=== PATIENT | female | born 1960 | race Caucasian/White ===

== ENCOUNTER → 2019-04-04 | Day surgery (SDC) | payer MEDICARE ==
[~2019-04-04] MED LIST: ANASTROZOLE1 MG PO; CALCIUM PO; CARVEDILOL12.5 MG PO; CHONDROITIN SU100 GM PO; FENTANYL CITRATE/PF 100MCG/2 ML INJ ONE; FLUOXETINE HCL20 MG PO; FUROSEMIDE40 MG PO; GABAPENTIN300 MG PO; GLUCOSAMINE1000 MG PO; LIDOCAINE HCL 2% LOCAL INJ 5 ML SDV VIAL INJ ONE; LISINOPRIL10 MG PO; MIDAZOLAM HCL 2 MG/2 ML VIAL ONE; MULTI-VITAMIN1 EACH PO; NORCO 7.5-3251 EACH PO; PANTOPRAZOLE SO40 MG PO; POTASSIUM CHLO10 ME1 PO; PROPOFOL IV EMULSION 10 MG/ML 50 ML VIAL ONE; SIMVASTATIN40 MG PO; TIZANIDINE HCL4 MG PO; ZOLPIDEM TARTRA10 MG PO
--- OUTSIDE RECORDS SUMMARY | 2019-04-04 05:55 | XMS REPORT | Summary of Care ---
Author Author [facility] Organization [facility] Address Unknown Phone Unavailable Encounter SUMAN Myles(ANAND) [id number] Date(s): 02/11/18 - 02/11/18 [facility] [address] [place] [address] [phone] Discharge Disposition: Home or Self Care Attending Physician: Marino Brian MD Vital Signs No data available for this section Problem List Condition Effective Dates Status Health Status Informant AICD (automatic Active cardioverter/defibri llator) present(Confirmed) CHF (congestive Active heart failure)(Confirmed) Hypercholesterolemia Active (Confirmed) Hypertension(Confirm Active ed) Insomnia(Confirmed) Active Breast Resolved cancer(Confirmed) Allergies, Adverse Reactions, Alerts Substance Reaction Severity Status NKDA Active Medications No data available for this section Results No data available for this section Immunizations No data available for this section Procedures Procedure Date Related Diagnosis Body Site Status Breast lumpectomy Completed Breast reconstruction Completed Cholecystectomy Completed Hysterectomy Completed Implantation of automatic Completed cardioverter/defibrillator, total system (AICD) Social History Social History Type Response Alcohol Current, Frequency: 1-2 times per month. Smoking Status Never smoker; Concerns about tobacco use in household: No; Exposure to Tobacco Smoke None; Cigarette Smoking Last 365 Days No; Reg Smoking Cessation Counseling No entered on: 07/26/17 Assessment and Plan No data available for this section
--- OUTSIDE RECORDS SUMMARY | 2019-04-04 05:55 | XMS REPORT | Continuity of Care Document ---
Author Author [facility] Interface Address Unknown Phone Unavailable Problems Problem Status Onset Date Classification Date Reported Comments Source AQUA LBP, RT LEG PAIN Active 11/25/2018 [facility] Low back pain 09/26/2018 02/07/2019 [facility] Edema, unspecified 05/16/2018 11/28/2018 [facility] LT ANKLE Active 04/02/2018 [facility] [place] Discharge Diagnosis: Abrasion of chest wall 07/26/2017 07/30/2017 [facility] Discharge Diagnosis: Contusion of left leg 07/26/2017 07/30/2017 [facility] Discharge Diagnosis: Left ankle sprain 07/26/2017 07/30/2017 [facility] Discharge Diagnosis: Chest wall contusion 07/26/2017 07/30/2017 [facility] FALL Active 07/26/2017 [facility] 789.00 - ABDMNAL PAIN UN Active 09/24/2012 [facility] [place] Pain in left ankle and joints of left foot 11/28/2018 [facility] Unspecified abnormalities of gait and mobility 11/28/2018 [facility] Sprain of unspecified ligament of right ankle, sequela 11/28/2018 [facility] Spinal stenosis, lumbar region without neurogenic claudication 02/07/2019 [facility] 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 [facility] AICD present(<span ID="[id number]">Confirmed</span>) Active Problem 02/07/2019 [facility], [facility] [place] REN[facility] CHF (<span ID="[id number]">Confirmed</span>) Active Problem 02/07/2019 [facility], [facility] [place] Hypercholesterolemia Active Problem 02/07/2019 [facility], [facility] [place] [place] [place] Hypertension Active Problem 02/07/2019 [facility] [place] [place] [place] Insomnia Active Problem 02/07/2019 [facility] [place] [place] [place] Breast cancer Resolved Problem 02/07/2019 [facility] [place] [place], [facility] [place] AICD present(<span ID="[id number]">Confirmed</span>) Active Problem 01/08/2019 [facility] [place], [place],[facility] CHF (<span ID="[id number]">Confirmed</span>) Active Problem 01/08/2019 [facility], [facility] [place], [place],[facility] Hypercholesterolemia Active Problem 01/08/2019 [facility], [facility] [place], [place],[facility] Hy[facility]ension [facility] [place] [place] Insomnia Active Problem 01/08/2019 [facility], [facility] [place], [place],[facility] Breast cancer Resolved Problem 01/08/2019 [facility], [facility] [place], [place],[facility] Medications Medication Details Route Status Patient Instructions Ordering Provider Order Date Source Acetaminophen 300 MG / Codeine Phosphate 30 MG Oral Tablet [Tylenol with Codeine #3] 1 - 2 tab, PO, Q4H, PRN Pain, X 2 day, # 20 tab, 0 Refill(s) No Longer Active 07/27/2017 [facility] Acetaminophen 325 MG / Hydrocodone Bitartrate 10 MG Oral Tablet [[place] 10/] 1 tab, Route: PO, Drug Form: TAB, Dosing Weight 88.636, kg, ONCE, STAT, Start date: 07/26/17 22:42:00 CDT, Stop date: 07/26/17 22:42:00 CDTNotes: Do not exceed 4gm/day of acetaminophen. (Same as: [place] 325/10) Inactive 07/27/2017 [facility] Allergies, Adverse Reactions, Alerts Substance Category Reaction Severity Reaction type Status Date Reported Comments Source Immunizations Immunization Date Given Site Status Last Updated Comments Source Results Order Name Results Value Reference Range Date Interpretation Comments Source Knee w contrast CT Knee w contrast CT Study: CT arthrogram of the right knee Clinical Indication: M25.561 - RT. KNEE PAIN Comparison: Plain films of the right knee from 12/03/2018 TECHNIQUE: Multiple axial CT images of the right knee were acquired following the intra-articular administration of iodinated contrast. Multiplanar reformatted images were performed. CT imaging performed at this location utilizes radiation dose optimization techniques which include one or more of the following: -Automated exposure control -Adjustment of the mA and/or kV according to patient size -Use of iterative reconstruction technique WRV=060 mGy-cm FINDINGS: Intra-articular contrast throughout the knee joint is seen. The anterior cruciate ligament and posterior cruciate ligament are grossly intact. Low-grade partial-thickness cartilage fissuring throughout the medial femoral condyle is seen. There is a superimposed deep full-thickness cartilage fissure along the central weightbearing portion of the medial femoral condyle (image 40 of series 301b). No contrast-filled tear of the medial meniscus is seen. There is no significant chondromalacia of the lateral femorotibial compartment. No contrast-filled tear of the lateral meniscus is seen. There is diffuse high-grade partial to full-thickness cartilage fissuring throughout the median patellar eminence and lateral patellar facet with underlying subchondral cystic change along the median patellar eminence. Mild lateral patellar tilt is seen. The quadriceps and patellar tendons are grossly intact. IMPRESSION: 1. Focal deep full-thickness cartilage fissure along the central weightbearing portion of the medial femoral condyle. 2. High-grade chondrosis throughout the lateral patellar facet and median patellar eminence. 3. No discrete meniscal tear. SL: [id number] 01/05/2019 - - Read by: Krzysztof Pham MD Dictated Date/time: 01/05/19 09:50 Electronically Signed by: Krzysztof Pham MD 01/05/19 09:56 FINAL REPORT [facility] [place] Knee arthrogram DX Knee arthrogram DX Patient Name: JERRY DE : 1960; Age: 58 years y/o Female MR: [id number] * Injection Procedure for CT Arthrography of the right knee. HISTORY: Right knee pain. The patient cannot undergo an magnetic resonance imaging examination and therefore was referred for CT arthrography. This report describes the injection procedure. TECHNIQUE: A suitable medial subpatellar location for puncture of the right knee joint was chosen by palpation. A generous portion of the right anterior anterior knee region was prepped with ChloraPrep and draped. The skin was anesthetized with 2% lidocaine with a 25-gauge needle. A 22-gauge guide needle was advanced into the right knee joint.. A small amount of 2% lidocaine was injected without resistance indicating good position within the joint. At this point, approximately 7 mL of nonionic iodinated contrast (Omnipaque 300) and 15 mL of normal saline was injected into the joint under fluoroscopic guidance to confirm good position. The needle was then removed without difficulty. The patient was then sent to the CT suite for CT arthrography. Please refer to separate radiographic report for CT arthrography. Fluoroscopy time: 1.8 minutes Radiation dose - reference air kerma: 15 mGy. IMPRESSION: 1. Injection procedure for CT arthrography of the right knee. 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 Comparison: None FINDINGS: Images of the right knee demonstrate no evidence for fracture, dislocation or destructive lesion. There is minimal degenerative spurring of the superior pole of the right patella. There is a small to moderate suprapatellar joint effusion. No other soft tissue abnormalities are appreciated. IMPRESSION: No acute fracture or dislocation of the right knee. [id number] suprapatellar joint effusion. Minimal degenerative change is present at the patellofemoral articulation. 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 COMPARISON: None TECHNIQUE: Grayscale and limited color sonographic evaluation of the right upper quadrant of the abdomen and gallbladder region was performed with standard technique. FINDINGS: LIVER: The visualized liver shows normal contour, size, and morphology. There is increased parenchymal echotexture. BILE DUCTS: The common bile duct measures 7.1 mm. The distal common bile duct is not well seen. GALLBLADDER: Surgically absent. PANCREAS: The pancreas body is normal. The head and tail are obscured by bowel gas. KIDNEY: The right kidney measures 11.5 x 5.8 x 6.0 cm. The renal cortical thickness measures 1.4 cm. There is normal renal contour and morphology, with normal parenchymal echotexture. There is no hydronephrosis. AORTA AND INFERIOR VENA CAVA: Visualized portions appear normal. ASCITES: There is no right upper quadrant abdominal ascites. IMPRESSION: 1. Hepatocellular disease most likely due to fatty infiltration. 2. Post cholecystectomy. SL: [id number] 11/10/2018 - - Read by: Karthik White MD Dictated Date/time: 11/10/18 11:27 Electronically Signed by: Karthik White MD 11/10/18 11:29 FINAL REPORT [facility] Spine lumbar wo contrast CT Spine lumbar wo contrast CT Clinical Indication: M54.5 - LOW BACK PAIN Comparison: None TECHNIQUE: Sequential trans-axial images were obtained with a multi-detector helical CT. Coronal and sagittal reconstructions were obtained. CT imaging performed at this location utilizes radiation dose optimization techniques which include one or more of the following: -Automated exposure control -Adjustment of the mA and/or kV according to patient size -Use of iterative reconstruction technique CT Radiation Dose DLP 892.21 mGy-cm FINDINGS: ALIGNMENT AND GENERAL ASSESSMENT: There are 5 nonrib-bearing lumbar vertebral segments. There is normal alignment of the lumbar spine. There is no fracture or subluxation. There are no pars defects. Paraspinal soft tissues are unremarkable as visualized. 9 x 6 mm partially calcified right renal artery aneurysm is seen near the right renal hilum. DISK SPACES AND SOFT TISSUES: MRI has higher sensitivity and specificity for disc and soft tissue disease. T12-L1: The disk is unremarkable. The facet joints appear unremarkable. There is no central or foraminal stenosis. L1-L2: The disk is unremarkable. The facet joints appear unremarkable. There is no central or foraminal stenosis. L2-L3: The disk is unremarkable. The facet joints appear unremarkable. There is no central or foraminal stenosis. L3-L4: There is minimal generalized disc bulging. There is mild facet hypertrophy. There is no significant spinal canal or foraminal stenosis. L4-L5: There is moderate generalized disc bulging. There is mild facet hypertrophy and ligamentum flavum thickening. There is mild bilateral lateral recess stenosis and mild bilateral foraminal stenosis. There is borderline spinal stenosis. L5-S1: There is minimal disc bulging. There is mild facet hypertrophy. There is no spinal canal or foraminal stenosis. If there is further concern, CT myelogram or MRI of the lumbar spine may be performed for complete assessment. IMPRESSION: 1. Mild lower lumbar degenerative change as detailed above. There is borderline spinal stenosis, mild bilateral lateral recess stenosis and mild bilateral foraminal stenosis at L4-L5. No other significant stenosis appreciated. 2. 9 x 6 mm partially calcified right renal artery aneurysm. SL: [id number] 07/21/2018 - - Read by: Suzette Lovell DO Dictated Date/time: 07/22/18 13:46 Electronically Signed by: Suzette Lovell DO 07/22/18 13:51 [facility] [place] Spine lumbar 2 or 3 views DX Spine lumbar 2 or 3 views DX Clinical Indication: M54.5 - LOW BACK PAIN Comparison: None FINDINGS: The AP, lateral and coned-down views of the lumbar spine show five non rib bearing lumbar vertebral segments. There are no fractures, pars defects, or spondylolisthesis. Mild multilevel degenerative change. The posterior elements, spinous processes and transverse processes are normal. The paraspinal soft tissues are unremarkable. The visualized sacroiliac joints are unremarkable. If there is further concern or neurological abnormalities on clinical exam, MRI or CT of the lumbar spine may be performed for complete assessment. IMPRESSION: Mild multilevel degenerative change. SL: [id number] 07/21/2018 - - Read by: Suzette Lovell DO Dictated Date/time: 07/22/18 13:44 Electronically Signed by: Suzette Lovell DO 07/22/18 13:45 FINAL REPORT [facility] [place] Ribs unilateral DX Ribs unilateral DX EXAM: Ribs unilateral DX HISTORY: - S22.39XA Fracture of one rib, unspecified side, initial encounter for closed fracture COMPARISON: 07/26/2017 Right rib series. IMPRESSION: No rib fracture is identified. There is an 8 mm calcification overlying the right kidney, possibly a renal stone. 02/11/2018 - - Read by: Phillip Ríos MD Dictated Date/time: 02/11/18 10:47 Electronically Signed by: Phillip Ríos MD 02/11/18 10:50 FINAL REPORT [facility] [place] Tibia fibula series DX Tibia fibula series DX Study: 2 views of left tibia and fibula History: Leg pain Comments: Normal bone mineralization. No acute fracture. Mild periosteal reaction in the posterior aspect of proximal tibia has been appearance. Differential considerations include old injury, venous stasis and osteomyelitis IMPRESSION: No acute fracture. Mild periosteal reaction in the posterior aspect of proximal tibia has been appearance. Differential considerations include old injury, venous stasis and osteomyelitis 07/26/2017 - - Read by: Genny Garcia MD Dictated Date/time: 07/26/17 23:14 Electronically Signed by: Genny Garcia MD 07/26/17 23:17 FINAL REPORT [place] Chest 2 views DX Chest 2 views DX Study: Two-view chest x-ray and multiple views of right ribs History: Fall Comments: The trachea is midline. The cardiomediastinal silhouette is normal in size. Left chest wall pacemaker in place No lung contusion. No pleural effusions or pneumothorax. No acute right rib fractures Impression: No acute cardiopulmonary disease. No acute right rib fractures 07/26/2017 - - Read by: Genny Garcia MD Dictated Date/time: 07/26/17 20:29 Electronically Signed by: Genny Garcia MD 07/26/17 20:36 FINAL REPORT [facility] Ribs unilateral DX Ribs unilateral DX Study: Two-view chest x-ray and multiple views of right ribs History: Fall Comments: The trachea is midline. The cardiomediastinal silhouette is normal in size. Left chest wall pacemaker in place No lung contusion. No pleural effusions or pneumothorax. No acute right rib fractures Impression: No acute cardiopulmonary disease. No acute right rib fractures 07/26/2017 - - Read by: Genny Garcia MD Dictated Date/time: 07/26/17 20:29 Electronically Signed by: Genny Garcia MD 07/26/17 20:35 FINAL REPORT [facility] Ankle 3 views DX Ankle 3 views DX Exam: Left Ankle 3 views DX Clinical Indication: Pain Post Trauma - Trauma. Comparison: None. FINDINGS: The 3 views of the ankle show normal alignment without fractures or dislocations. The tibiotalar joint and talar dome are unremarkable. The subtalar joint is unremarkable. There is no ankle joint effusion. The mortise is normal. The distal tibia-fibular alignment is unremarkable. There is moderate soft tissue swelling adjacent to the left medial malleolus. There is no radiopaque foreign body. If there is further concern, recommend follow-up radiographs or MRI for complete assessment. IMPRESSION: No fracture or dislocation. Moderate soft tissue swelling at the medial aspect of the left ankle. SL: [id number] 07/26/2017 - - Read by: Aparna Ferrera MD Dictated Date/time: 07/26/17 20:31 Electronically Signed by: Aparna Ferrera MD 07/26/17 20:33 FINAL REPORT [facility] Internal Auditory Can w w/o contrast CT Internal Auditory Can w w/o contrast CT CT temporal bones without and with contrast 07/18/2013 Clinical: Acute serous otitis media, left hearing loss, vertigo. Comparison: None available. Findings: Moderate right noncoalescent mastoiditis is present with air cell opacification. Small volume of fluid is also present within the right petrous apex. The bilateral middle ear cavities are well aerated. The bilateral middle ear ossicles are unremarkable. The bilateral otic labyrinths show no acute abnormality. Note is made of deficient osseous covering the left superior semicircular canal. The bilateral internal auditory canals appear symmetric. IMPRESSION: 1. Moderate right noncoalescent mastoiditis. Small volume of right petrous apex inflammatory disease versus effusion. 2. Well aerated bilateral middle ear cavities. 3. 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 Please correlate for left superior semicircular canal dehiscent syndrome. 07/18/2013 - - Read by: Pipo Ray Dictated Date/time: 07/19/13 07:59 Electronically Signed by: Pipo Ray MD 07/19/13 08:59 FINAL REPORT [facility] Vital Signs Vital Sign Value Date Comments Source Heart Rate 61 07/27/2017 [facility] Temperature Oral (F) 97.7 F 07/27/2017 [facility] Respitory Rate 18 07/27/2017 [facility] Systolic (mm Hg) 119 07/27/2017 [facility] Diastolic (mm Hg) 77 07/27/2017 [facility] Height 170.18 cm 07/27/2017 [facility] BMI Calculated 30.61 07/27/2017 [facility] Weight 88.636 07/27/2017 [facility] Temperature Oral (F) 97.6 F 07/27/2017 [facility] Heart Rate 70 07/27/2017 [facility] Respitory Rate 18 07/27/2017 [facility] Systolic (mm Hg) 127 07/27/2017 [facility] Diastolic (mm Hg) 85 07/27/2017 [facility] Encounters Location Location Details Encounter Type Encounter Number Reason For Visit Attending Provider ADM Date DC Date Status Source OD [id number] 789.00 - ABDMNAL PAIN UN SERA JOAN 09/29/2012 Active RENATA Mccoy [facility] Emergency [id number] Jerry Alcanter 07/27/2017 07/27/2017 [facility] [place] [facility] [id number] Marino Brian 02/11/2018 02/12/2018 RENATA Mccoy [facility] Pool [facility] OP Therapy Patients [id number] Alexsandra Fernandez 04/12/2018 05/12/2018 [facility] [place] [facility] [id number] Marino Brian 07/21/2018 07/22/2018 RENATA Headley [facility] [place] [facility] [id number] Cale Albert 12/03/2018 12/04/2018 [facility] [id number] Sudha Davis 12/08/2018 01/07/2019 [facility] [place] [facility] [id number] Bethanie Aranza 01/05/2019 01/06/2019 [facility] [place] Procedures Procedure Code Date Perfomer Comments Source Breast lumpectomy [id number] [facility] Breast reconstruction [id number] [facility] Cholecystectomy [id number] [facility] Hysterectomy [id number] [facility] Implantation of automatic cardioverter/defibrillator, total system (AICD) [id number] [facility] Breast lumpectomy [id number] [facility] [place] Breast reconstruction [id number] [facility] [place] Cholecystectomy [id number] [facility] [place] Hysterectomy [id number] [facility] [place] Implantation of automatic cardioverter/defibrillator, total system (AICD) [id number] [facility] [place] Breast lumpectomy [id number] [place] Breast [facility] [id number] [place] Cholecystectomy [id number] [facility] [place] Hysterectomy [id number] [place] Implantation of automatic cardioverter/defibrillator, total system (AICD) [id number] [place] Breast lumpectomy [id number] [facility] [place] Breast reconstruction [id number] [facility] [place] Cholecystectomy [id number] [facility] [place] Hysterectomy [id number] [facility] [place] Implantation of automatic cardioverter/defibrillator, total system (AICD) [id number] [facility] [place] Breast lumpectomy [id number] [facility] Breast reconstruction [id number] [facility] Cholecystectomy [id number] [facility] Hysterectomy [id number] [facility] Implantation of automatic cardioverter/defibrillator, total system (AICD) 51980747 [facility]
--- OUTSIDE RECORDS SUMMARY | 2019-04-04 05:55 | XMS REPORT | Summary of Care ---
Author Author DEA RUDD N.P. Organization Unknown Address Unknown Phone Unavailable Care Team Providers Care Fabric And Accessories Estimator Name Role Phone SERA FRANCO M.D. Unavailable Unavailable TAISHA LUND M.D. Unavailable Unavailable DAE RUDD N.P. Unavailable Unavailable GREYSON TINSLEY MD Unavailable Unavailable YOGESH BAEZA MO, LISETTE Unavailable Unavailable Unavailable Unavailable Functional Status Name Dates Details Functional status health issues are not documented Status: Name Dates Details Cognitive status health issues are not documented Status: Problems Name Dates Details Insomnia (780.52, G47.00) Status: Active Anxiety disorder (300.00, F41.9) Status: Active Essential (primary) hypertension (401.9, I10) Status: Active Acute suppurative otitis media (382.00, H66.009) Status: Active Normal routine physical examination (V70.0, Z00.00) Status: Active Hyperlipidemia (272.4, E78.5) Status: Active Limb pain (729.5, M79.609) Status: Active Effusion of right knee (719.06, M25.461) Status: Active Knee pain, right (719.46, M25.561) Status: Active Arthritis of knee, left (716.96, M17.12) Status: Active Effusion of knee (719.06, M25.469) Status: Active Medications Name Dates Details Multi-Vitamins TABS TAKE 1 TABLET DAILY. Active Carvedilol 12.5 MG Oral Tablet TAKE ONE TABLET BY MOUTH TWICE DAILYAPPT NEEDED IN DECEMBER * Quantity: 60 Refills: 1 SERA FRANCO M.D. * Start : 25-Nov-2013 Active Klor-Con 10 10 MEQ Oral Tablet Extended Release TAKE 1 TABLET DAILY. * Refills: 0 Active Furosemide 40 MG Oral Tablet TAKE 1 TABLET DAILY * Refills: 0 Active Lisinopril 10 MG Oral Tablet TAKE 1 TABLET DAILY. * Refills: 0 Active Simvastatin 20 MG Oral Tablet TAKE ONE TABLET BY MOUTH NIGHTLY AT BEDTIME APPT NEEDED * Quantity: 90 Refills: 0 JOAN Polanco SERA * Start : 04-Oct-2013 Active Calcium 600 TABS TAKE 1 TABLET DAILY. * Refills: 0 Active Fish Oil CAPS TAKE 1 CAPSULE DAILY * Refills: 0 Active Venlafaxine HCl ER TB24 * Refills: 0 Active Zolpidem Tartrate 10 MG Oral Tablet TAKE 1 TABLET AT BEDTIME NEEDED. * Quantity: 30 Refills: 0 TAISHA LUND M.D. Active Azithromycin 250 MG Oral Tablet TAKE 2 TABLETS ON DAY 1 THEN TAKE 1 TABLET A DAY FOR 4 DAYS. * Quantity: 6 Refills: 0 SERA FRANCO M.D. * Start : 04-Jul-2013 Active Venlafaxine HCl - 75 MG Oral Tablet TAKE ONE TABLET BY MOUTH ONE TIME DAILYAPPT NEEDED IN DECEMBER * Quantity: 30 Refills: 1 SERA FRANCO M.D. * Start : 26-Sep-2013 Active FLUoxetine HCl - 40 MG Oral Capsule * Refills: 0 Active Anastrozole 1 MG Oral Tablet TAKE 1 TABLET DAILY. * Refills: 0 Active Vicodin TABS * Refills: 0 Active Gabapentin 300 MG Oral Capsule * Refills: 0 Active tiZANidine HCl - 4 MG Oral Capsule * Refills: 0 Active Pennsaid 2 % Transdermal Solution Apply 2 pumps twice a day to affected extremity. * Quantity: 2 Refills: 2 DEA RUDD N.P. * Start : 12-Jan-2019 Active 112 GM Pump Btl Allergies and Adverse Reactions Name Dates Details No Known Drug Allergies (Allergy) Status: Active Past Medical History Name Dates Details History of back pain (V13.59, Z87.39) Status: Resolved History of Coronary Artery Disease (V12.59) Status: Resolved History of essential hypertension (V12.59, Z86.79) Status: Resolved History of Gallbladder problem (575.9, K82.9) Status: Resolved History of hyperlipidemia (V12.29, Z86.39) Status: Resolved History of malignant neoplasm of breast (V10.3, Z85.3) Status: Resolved Procedures Procedure Dates Details History of Cholecystectomy Completed Comments: Completed: 1984 History of Hysterectomy Completed Comments: Completed: 1988 History of Tubal Ligation Completed Comments: Completed: 1983 History of Breast Surgery Enlargement Procedure Completed Comments: Completed: 1999 History of Appendectomy Completed History of Pacemaker Placement Completed 23-Feb-2009 History of Breast Surgery Mastectomy Completed History of Gallbladder surgery Completed Immunization Name Dates Details Hepatitis B on: 26-Jan-2012 Pneumococcal polysaccharide vaccine, 23 valent on: 26-Jan-2012 Hepatitis B on: 03-Mar-2012 Influenza on: 05-Nov-2012 Family History Name Dates Details Family history of Cardiac abnormality (746.9, Q24.9) Status: Active Family history of diabetes mellitus (V18.0, Z83.3) Status: Active Name Dates Details Family history of Coronary Artery Disease (V17.49) Status: Active Family history of Diabetes Mellitus (V18.0) Status: Active Family history of diabetes mellitus (V18.0, Z83.3) Status: Active Name Dates Details Family history of Cardiac abnormality (746.9, Q24.9) Status: Active Family history of malignant neoplasm (V16.9, Z80.9) Status: Active Family history of liver disease (V18.59, Z83.79) Status: Active Social History Name Dates Details - Status: Name Dates Details Never smoker Vital Signs Date Test Result Details [id number] Weight 190 lb Status: Body Mass Index Calculated 29.76 kg/m2 Status: Body Surface Area Calculated 1.98 m2 Status: Results Date Description Value Details Results not documented Plan of Care Name Dates Details Planned Observations Planned Goals not documented Planned Encounters Appointment; DEA RUDD NP On: 28-Feb-2019 8:00 Interventions Provided Medication Changes* Pennsaid 2 % Transdermal Solution - Start Plan* Completed at Today's Appointment: * Injection * Patient Education/Instructions: * Patient Education Provided * Reassurance * Counseling Provided - Discussed with Family/Patient * Family/Patient given opportunity to ask questions. * Family/Patient Verbalized Understanding. * Patient/Parent to call or return with any abnormal changes * Follow Up: * Return to the clinic in 6 weeks or as needed. * Discussed with Ms. DE conservative treatment options for osteoarthritis. Treatment included pain medication (NSAID's and topicals), bracing, physical therapy, cortisone injections, and hyaluronic acid. Will order RODRIGUEZ as well as do cortisone today. Instructions Name Dates Details Instructions not documented Encounters Appointment; RALPH LANDRUM M.D. Encounter Diagnosis: Problem not documented On: 31-Jul-2017 13:30 Appointment; DEA RUDD NP Encounter Diagnosis: Problem not documented On: 29-Dec-2018 13:00 Appointment; DEA RUDD NP Encounter Diagnosis: Problem not documented On: 12-Jan-2019 8:00
--- OUTSIDE RECORDS SUMMARY | 2019-04-04 05:55 | XMS REPORT | Summary of Care ---
Author Author [facility] Organization [facility] Address Unknown Phone Unavailable Encounter SUMAN Myles(ANAND) [id number] Date(s): 07/26/17 - 07/27/17 [facility] [address] [place] [address]- Discharge Diagnosis: Abrasion of chest wall Discharge Diagnosis: Contusion of left leg Discharge Diagnosis: Left ankle sprain Discharge Diagnosis: Chest wall contusion Discharge Disposition: Home or Self Care Attending Physician: Jerry Suarez MD Vital Signs Most recent to 1 2 oldest [Reference Range]: Height 170.18 cm (07/26/17 7:43 PM) Temperature Oral 97.7 DegF 97.6 DegF [96.4-99.1 DegF] (07/27/17 12:50 AM) (07/26/17 7:43 PM) Blood Pressure 119/77 mmHg 127/85 mmHg [90-140/60-90 mmHg] (07/27/17 12:50 AM) (07/26/17 7:43 PM) Respiratory Rate 18 BRMIN 18 BRMIN [14-20 BRMIN] (07/27/17 12:50 AM) (07/26/17 7:43 PM) Peripheral Pulse 61 bpm 70 bpm Rate [60-100 bpm] (07/27/17 12:50 AM) (07/26/17 7:43 PM) Weight 88.636 kg (07/26/17 7:43 PM) Body Mass Index 30.61 m2 (07/26/17 7:43 PM) Problem List Condition Effective Dates Status Health Status Informant AICD (automatic Active cardioverter/defibri llator) present(Confirmed) CHF (congestive Active heart failure)(Confirmed) Hypercholesterolemia Active (Confirmed) Hypertension(Confirm Active ed) Insomnia(Confirmed) Active Breast Resolved cancer(Confirmed) Allergies, Adverse Reactions, Alerts Substance Reaction Severity Status NKDA Active Medications [place] 10/325 oral tablet 1 tab, Route: PO, Drug Form: TAB, Dosing Weight 88.636, kg, ONCE, STAT, Start da te: 07/26/17 22:42:00 CDT, Stop date: 07/26/17 22:42:00 CDT Notes: Do not exceed 4gm/day of acetaminophen. (Same as: [place] 325/10) Start Date: 07/26/17 Stop Date: 07/26/17 Status: Completed Tylenol with Codeine #3 oral tablet 1 - 2 tab, PO, Q4H, PRN Pain, X 2 day, # 20 tab, 0 Refill(s) Start Date: 07/26/17 Stop Date: 07/28/17 Status: Completed Results No data available for this section Immunizations No data available for this section Procedures Procedure Date Related Diagnosis Body Site Breast lumpectomy Breast reconstruction Cholecystectomy Hysterectomy Implantation of automatic cardioverter/defibrillator, total system (AICD) Social History Social History Type Response Alcohol Current, Frequency: 1-2 times per month. Smoking Status Never smoker; Concerns about tobacco use in household: No; Exposure to Tobacco Smoke None; Cigarette Smoking Last 365 Days No; Reg Smoking Cessation Counseling No Assessment and Plan No data available for this section
--- OUTSIDE RECORDS SUMMARY | 2019-04-04 05:55 | XMS REPORT | Summary of Care ---
Author Author [facility] Pool [facility] Address Unknown Phone Unavailable Encounter SUMAN Myles(ANAND) [id number] Date(s): 04/12/18 - 05/11/18 [facility] Pool [facility] Encounter Diagnosis Edema, unspecified (Final) - 05/15/18 Pain in left ankle and joints of left foot (Final) - Unspecified abnormalities of gait and mobility (Final) - Sprain of unspecified ligament of right ankle, sequela (Final) - Discharge Disposition: Home or Self Care Attending Physician: Alexsandra Fernandez DPShena Vital Signs No data available for this [...]
--- OUTSIDE RECORDS SUMMARY | 2019-04-04 05:55 | XMS REPORT | Summary of Care ---
Author Author [facility] Organization [facility] Address Unknown Phone Unavailable Encounter HQ Robert_lang(FIN) [id number] Date(s): 12/08/18 - 01/06/19 [facility] Discharge Disposition: Home or Self Care Attending Physician: Sudha Davis MD Vital Signs No data available for [...]
--- OUTSIDE RECORDS SUMMARY | 2019-04-04 05:55 | XMS REPORT | Summary of Care ---
Author Author [facility] Outpatient Imaging [facility] [place] Address Unknown Phone Unavailable Encounter HQ Shameka(ANAND) [id number] Date(s): 12/03/18 - 12/03/18 [facility] [place] [address] [facility] [place] [address] 46- [phone] Discharge Disposition: Home or Self Care Attending Physician: Cale Albert MD Referring Physician: Cale Albert MD Vital Signs No data available for [...]
--- OUTSIDE RECORDS SUMMARY | 2019-04-04 05:55 | XMS REPORT | CCD ---
Author Author Auto Generated Organization [facility] [place] Address Unknown Phone Unavailable Care Team Providers Care Ink Technician Name Role Phone Aracelis Hernandez CP Allergies, Adverse Reactions, Alerts Substance Reaction Status NKDA Active
--- OUTSIDE RECORDS SUMMARY | 2019-04-04 05:55 | XMS REPORT | Summary of Care ---
Author Author [facility] Out[facility] [place] Address Unknown Phone Unavailable Encounter HQ Shameka(ANAND) [id number] Date(s): 01/05/19 - 01/05/19 [facility] [place] [address] [facility] [place] [address] 46- [phone] Discharge Disposition: Home or Self Care Attending Physician: Bethanie Cobian MD Referring Physician: Bethanie Cobian MD Vital Signs No data available for [...]
--- OUTSIDE RECORDS SUMMARY | 2019-04-04 05:55 | XMS REPORT | Summary of Care ---
Author Author [facility] Outpatient Imaging [facility] [place] Address Unknown Phone Unavailable Encounter HQ Karenntr_lang(FIN) [id number] Date(s): 07/21/18 - 07/21/18 [facility] Out[facility] [place] [address] [facility] [address] [place] [address] 46- [phone] Encounter Diagnosis Low back pain (Final) - 09/26/18 Spinal stenosis, lumbar region without neurogenic claudication (Final) - Aneurysm of renal artery (Final) - Discharge Disposition: Home or Self Care Attending Physician: Marino Brian MD Referring Physician: Marino Brian MD Vital Signs No [...]
[2019-04-04 09:05] VITALS: BP 123/56
--- NOTE | 2019-04-04 16:26 | Operative Report ---
DATE OF PROCEDURE: 04/04/2019 SURGEON: Miquel Ayala MD PROCEDURE: EGD with biopsies. INDICATIONS FOR EGD: Acid reflux, nausea, and bloating. MEDICATIONS: The patient was done under MAC, please see anesthesiologist's note. PROCEDURE IN DETAIL: With the patient in left lateral decubitus position, a flexible fiberoptic Olympus gastroscope was introduced into the esophagus under direct visualization without any difficulty. There was some patchy erythema noted in distal esophagus. The scope was then advanced with ease into the stomach traversing a small sliding hiatal hernia. Mucosa overlying the antrum and the body revealed some diffuse erythema and [id number] edema. Biopsies were obtained sent to stain for H pylori. Pylorus was normal contour and shape and was intubated with ease and the scope was advanced all the way to the second portion of the duodenum. The scope was then withdrawn slowly. Mucosa overlying the proximal second portion and duodenal bulb grossly appeared to be within normal limits. Biopsies were obtained to rule out sprue. The scope was then withdrawn back into the stomach and retroflexed. Mucosa overlying the fundus and cardia appeared to be within normal limits. The scope was then straightened out. The stomach was decompressed. The scope was subsequently withdrawn from the patient and tolerated the procedure well. IMPRESSION: 1. Mild distal esophagitis. 2. Small sliding hiatal hernia. 3. Gastritis, biopsied. Biopsies sent to stain for H pylori. 4. Rule out sprue. PLAN: Follow up histology. Continue Protonix 40 mg one p.o. a.c. b.i.d. Miquel Ayala MD [facility] /[id number] cc: MD Miquel Shahid MD
== END | disposition home or self-care (01) ==
LOC: OR 05:51
PROVIDERS: ATTEND Internal Medicine Gastroenterology
DX: Z12.11 Encounter for screening for malignant neoplasm of colon (principal); K21.0 Gastro-esophageal reflux disease with esophagitis; K44.9 Diaphragmatic hernia without obstruction or gangrene; K29.70 Gastritis, unspecified, without bleeding; R12 Heartburn; R14.0 Abdominal distension (gaseous); R11.0 Nausea; I11.0 Hypertensive heart disease with heart failure; I50.9 Heart failure, unspecified; Z85.3 Personal history of malignant neoplasm of breast; Z95.810 Presence of automatic (implantable) cardiac defibrillator; E78.5 Hyperlipidemia, unspecified; G47.33 Obstructive sleep apnea (adult) (pediatric); Z01.810 Encounter for preprocedural cardiovascular examination
CPT/HCPCS: 43239; 88305; 88312; 93005; J2001; J2250; J2704

== ENCOUNTER → 2020-06-15 | Outpatient (CLI) | payer MEDICARE ==
[~2020-06-15] MED LIST changes: -FENTANYL CITRATE/PF 100MCG/2 ML INJ ONE; -LIDOCAINE HCL 2% LOCAL INJ 5 ML SDV VIAL INJ ONE; -MIDAZOLAM HCL 2 MG/2 ML VIAL ONE; -PROPOFOL IV EMULSION 10 MG/ML 50 ML VIAL ONE
--- NOTE | 2020-06-19 10:34 | Diagnostic Imaging Report ---
Thyroid ultrasound CPT code: 65596 History: Goiter Comparison: None Findings: The thyroid echotexture is mildly heterogeneous. Vascularity is normal. The right lobe measures 4.7 x 1.3 x 1.6 cm. The left lobe measures 4.7 x 0.8 x 1.2 cm. The isthmus measures 0.2 cm. Nodules (measurements are AP, transverse, craniocaudal): Right Lobe: No cystic mass or discrete solid nodule identified. Left Lobe: Lower pole 6 x 3 x 5 mm hypoechoic well-circumscribed wider than tall nodule without associated vascularity or calcifications. Isthmus: No cystic mass or discrete solid nodule identified. Lymph Nodes: No cervical lymph nodes are identified. Parathyroids: Not visualized. IMPRESSION: Left thyroid lower pole nodule measures 6 x 3 x 5mm and is not suspicious by imaging criteria (TI-RADS 2). ACR glossary of thyroid rads TI-RADS 1: No focal lesion. TI-RADS 2: Not suspicious. TI-RADS 3: Mildly suspicious (recommend FNA is greater than or equal to 2.5 cm; follow-up at 1, 3, and 5 years if greater than or equal to 1.5 cm) TI-RADS 4: Moderately Suspicious (recommend FNA is greater than or equal to 1.5 cm; follow-up at 1, 2, 3, and 5 years) TI-RADS 5: Highly suspicious (recommend FNA is greater than or equal to 10 mm) TI-RADS 6: Biopsy-proven malignancy Signed by: Va Barcenas MD on 06/19/2020 10:31 AM
== END ==
LOC: US 16:07
PROVIDERS: ATTEND Internal Medicine
DX: E04.9 Nontoxic goiter, unspecified (principal)
CPT/HCPCS: 76536

== ENCOUNTER → 2021-10-09 | Day surgery (SDC) | payer MEDICARE ==
[2021-10-08 08:31] LABS: BASOPHILS % 0.5 % (0.0-1.0); EOSINOPHILS # (AUTO) 0.1 (0.0-0.4); EOSINOPHILS % 1.2 % (0.0-6.0); HEMATOCRIT 39.4 % (34.2-44.1); HEMOGLOBIN 12.8 g/dL (12.0-16.0); LYMPHOCYTES # (AUTO) 2.1 (1.0-3.2); LYMPHOCYTES % 32.4 % (18.0-39.1); MEAN CORPUSCULAR HEMOGLOBIN 31.4 pg (28-32); MEAN CORPUSCULAR HGB CONC 32.5 g/dL (31-35); MEAN CORPUSCULAR VOLUME 96.6 fL (81-99); MONOCYTES # (AUTO) 0.3 (0.2-0.8); MONOCYTES % 5.1 % (4.4-11.3); NEUTROPHILS # (AUTO) 3.9 (2.1-6.9); NEUTROPHILS % 60.6 % (38.7-80.0); PLATELET COUNT 245 x10e3/uL (140-360); RED BLOOD COUNT 4.08 x10e6/uL (3.6-5.1); RED CELL DISTRIBUTION WIDTH 12.2 % (11.7-14.4)
[2021-10-08 08:59] LABS: ALBUMIN 4.1 g/dL (3.5-5.0); ALBUMIN/GLOBULIN RATIO 1.1 (0.8-2.0); CALCIUM 9.4 mg/dL (8.4-10.2); CREATININE, SERUM 0.75 mg/dL (0.57-1.11)
[2021-10-08 09:05] LABS: INR 0.85; PROTHROMBIN TIME 12.3 seconds (11.9-14.5)
[~2021-10-09] MED LIST changes: +CANDICIDAL CAP1 EACH PO; +CARAFATE1 GM PO; +HAIR, SKIN & N1 EACH PO; +LIDOCAINE HCL 2% LOCAL INJ 5 ML SDV VIAL INJ ONE; +MIDAZOLAM HCL 2 MG/2 ML VIAL ONE; +PROPOFOL IV EMULSION 10 MG/ML 20 ML VIAL ONE; +VITAMIN D250 MC1 PO
[2021-10-09 11:05] VITALS: BP 105/85
== END | disposition home or self-care (01) ==
LOC: OR 08:14
PROVIDERS: ATTEND Internal Medicine Gastroenterology
DX: K29.50 Unspecified chronic gastritis without bleeding (principal); K31.7 Polyp of stomach and duodenum; K44.9 Diaphragmatic hernia without obstruction or gangrene; Z71.3 Dietary counseling and surveillance; G47.33 Obstructive sleep apnea (adult) (pediatric); I11.0 Hypertensive heart disease with heart failure; I50.9 Heart failure, unspecified; F32.A Depression, unspecified; Z01.810 Encounter for preprocedural cardiovascular examination; Z01.812 Encounter for preprocedural laboratory examination; Z20.822 Contact with and (suspected) exposure to COVID-19; Z79.899 Other long term (current) drug therapy; Z68.28 Body mass index [BMI] 28.0-28.9, adult; Z85.3 Personal history of malignant neoplasm of breast; Z95.810 Presence of automatic (implantable) cardiac defibrillator
CPT/HCPCS: 36415; 43239; 80053; 85025; 85610; 85730; 93005; C9113; J2001; J2250; J2704; U0002

== ENCOUNTER 2022-01-08 06:11 | Emergency (ER) | payer MEDICARE ==
[~2022-01-08] VITALS: Ht 167.6 cm; Wt 90.7 kg
[~2022-01-08 06:11] MED LIST changes: -LIDOCAINE HCL 2% LOCAL INJ 5 ML SDV VIAL INJ ONE; -MIDAZOLAM HCL 2 MG/2 ML VIAL ONE; -PROPOFOL IV EMULSION 10 MG/ML 20 ML VIAL ONE
[2022-01-08] MEDS ORDERED: FAMOTIDINE 20 MG/2 ML VIAL IV STA (06:20)
[2022-01-08] MEDS ORDERED: ONDANSETRON HCL INJ 2MG/ML 2ML 2 MG/ML VIAL IV STA (06:20)
[2022-01-08] MEDS ORDERED: LACTATED RINGER'S 1,000 ML INJ ONE (06:30)
[2022-01-08 06:31] LABS: BASOPHILS % 0.3 % (0.0-1.0); EOSINOPHILS % 0.3 % (0.0-6.0); HEMATOCRIT 39.6 % (34.2-44.1); HEMOGLOBIN 13.6 g/dL (12.0-16.0); LYMPHOCYTES # (AUTO) 0.5 (1.0-3.2); LYMPHOCYTES % 4.1 % (18.0-39.1); MEAN CORPUSCULAR HEMOGLOBIN 32.3 pg (28-32); MEAN CORPUSCULAR HGB CONC 34.3 g/dL (31-35); MEAN CORPUSCULAR VOLUME 94.1 fL (81-99); MONOCYTES # (AUTO) 0.5 (0.2-0.8); MONOCYTES % 3.9 % (4.4-11.3); NEUTROPHILS # (AUTO) 10.4 (2.1-6.9); NEUTROPHILS % 91.2 % (38.7-80.0); PLATELET COUNT 233 x10e3/uL (140-360); RED BLOOD COUNT 4.21 x10e6/uL (3.6-5.1); RED CELL DISTRIBUTION WIDTH 12.7 % (11.7-14.4)
[2022-01-08 06:50] LABS: ALBUMIN/GLOBULIN RATIO 1.1 (0.8-2.0); ANION GAP 11.9 mmol/L (8-16); CALCIUM 9.2 mg/dL (8.4-10.2); CREATININE, SERUM 0.75 mg/dL (0.57-1.11); POTASSIUM 3.9 mmol/L (3.5-5.1)
[2022-01-08] MEDS ORDERED: ONDANSETRON ODT4 MG PO (07:37)
[2022-01-08 08:07] VITALS: BP 106/62
== END 2022-01-08 08:11 | disposition home or self-care (01) ==
LOC: ER 06:23
DX: R11.2 Nausea with vomiting, unspecified (principal); K52.9 Noninfective gastroenteritis and colitis, unspecified; E78.5 Hyperlipidemia, unspecified; F41.9 Anxiety disorder, unspecified; Z85.3 Personal history of malignant neoplasm of breast; Z95.810 Presence of automatic (implantable) cardiac defibrillator
CPT/HCPCS: 36415; 80053; 84484; 85025; 93005; 99284; J2405; J7121

== ENCOUNTER 2023-03-07 07:29 | Emergency (ER) | payer MEDICARE ==
[~2023-03-07] VITALS: Ht 167.6 cm; Wt 87.7 kg
[~2023-03-07 07:29] MED LIST changes: +ACYCLOVIR800 MG PO; +OFLOXACIN5 ML OP; +ONDANSETRON ODT4 MG PO
[2023-03-07] MEDS ORDERED: ALBUTEROL/IPRATROPIUM 3 ML NEB NEB ONE (08:00)
[2023-03-07] MEDS ORDERED: IPRATROPIUM BROMIDE 0.02% 2.5 ML NEB NEB ONE (08:00)
[2023-03-07] MEDS ORDERED: ALBUTEROL SULF 0.083% NEB SOLN 3 ML NEB NEB ONE (08:00)
[2023-03-07] MEDS ORDERED: IPRATROPIUM BROMIDE 0.02% 2.5 ML NEB ONE (08:19)
[2023-03-07] MEDS ORDERED: ALBUTEROL SULF 0.083% NEB SOLN 3 ML NEB ONE (08:20)
[2023-03-07 08:23] VITALS: PULSE 83; RESP 18
[2023-03-07] MEDS ORDERED: AMOXICILLIN875 MG PO (08:52)
[2023-03-07 08:57] VITALS: O2SAT 96
[2023-03-07] MEDS ORDERED: CRESTOR10 MG PO (17:38)
[2023-03-07] MEDS ORDERED: DEXILANT30 MG (17:38)
== END 2023-03-07 09:10 | disposition home or self-care (01) ==
LOC: FSED 07:46
DX: R05.9 Cough, unspecified (principal); J06.9 Acute upper respiratory infection, unspecified; I50.9 Heart failure, unspecified; E78.5 Hyperlipidemia, unspecified; R51.9 Headache, unspecified; H92.02 Otalgia, left ear; Z95.810 Presence of automatic (implantable) cardiac defibrillator; Z85.3 Personal history of malignant neoplasm of breast
CPT/HCPCS: 71046; 80048; 82553; 83518; 83880; 84484; 85025; 87400; 93005; 99284

== ENCOUNTER 2024-11-06 20:12 | Emergency (ER) | payer MEDICARE ==
[~2024-11-06] VITALS: Ht 167.6 cm; Wt 79.4 kg
[~2024-11-06 20:12] MED LIST changes: +AMOXICILLIN875 MG PO; +CRESTOR10 MG PO; +DEXILANT30 MG
[2024-11-06 20:16] VITALS: RESP 18; TEMP 98.5
[2024-11-06] MEDS ORDERED: SODIUM CHLORIDE 0.9% 1000ML 500 ML IV STA (20:29)
[2024-11-06] MEDS: METHYLPREDNISOLONE SOD SUCC 125 MG/2ML VIAL IV STA (20:59)
[2024-11-06] MEDS: SODIUM CHLORIDE 0.9% 500ML 500 ML IV STA (20:59)
[2024-11-06] MEDS: KETOROLAC TROMETHAMINE 30 MG/ML VIAL IV STA (21:00)
[2024-11-06] MEDS: DIPHENHYDRAMINE HCL INJ 50 MG/ML VIAL IV STA (21:00)
[2024-11-06] MEDS: METOCLOPRAMIDE HCL 10 MG/2ML VIAL IV STA (21:00)
[2024-11-06 21:03] LABS: BASOPHILS % 0.4 % (0.0-1.0); EOSINOPHILS % 0.1 % (0.0-6.0); HEMATOCRIT 41.9 % (34.2-44.1); HEMOGLOBIN 13.5 g/dL (12.0-16.0); LYMPHOCYTES # (AUTO) 1.6 (1.0-3.2); LYMPHOCYTES % 21.1 % (18.0-39.1); MEAN CORPUSCULAR HGB CONC 32.2 g/dL (31-35); MEAN CORPUSCULAR VOLUME 102.4 fL (81-99); MONOCYTES # (AUTO) 0.4 (0.2-0.8); MONOCYTES % 5.4 % (4.4-11.3); NEUTROPHILS # (AUTO) 5.7 (2.1-6.9); NEUTROPHILS % 72.7 % (38.7-80.0); PLATELET COUNT 219 x10e3/uL (140-360); RED BLOOD COUNT 4.09 x10e6/uL (3.6-5.1); WHITE BLOOD COUNT 7.78 x10e3/uL (4.8-10.8)
[2024-11-06 21:22] LABS: ALBUMIN 4.5 g/dL (3.5-5.0); ALBUMIN/GLOBULIN RATIO 1.4 (0.8-2.0); BILIRUBIN,TOTAL 1.4 mg/dL (0.2-1.2); CALCIUM 10.1 mg/dL (8.4-10.2); CREATININE, SERUM 0.79 mg/dL (0.57-1.11); TOTAL PROTEIN 7.8 g/dL (6.5-8.1)
[2024-11-06 21:26] LABS: CORONAVIRUS COVID-19 AG NEGATIVE (NEGATIVE); INFLUENZA A AG NEGATIVE (NEGATIVE); INFLUENZA B AG NEGATIVE (NEGATIVE)
[2024-11-07] MEDS ORDERED: ONDANSETRON ODT4 MG PO (00:17)
[2024-11-07 00:20] VITALS: PULSE 86
[2024-11-07 00:24] VITALS: BP 132/81; O2SAT 100
== END 2024-11-07 00:25 | disposition home or self-care (01) ==
LOC: ER 20:18
DX: R51.9 Headache, unspecified (principal); R11.2 Nausea with vomiting, unspecified; I10 Essential (primary) hypertension; I50.9 Heart failure, unspecified; E78.5 Hyperlipidemia, unspecified; F41.9 Anxiety disorder, unspecified; F32.A Depression, unspecified; Z85.3 Personal history of malignant neoplasm of breast; Z95.810 Presence of automatic (implantable) cardiac defibrillator
CPT/HCPCS: 36415; 70450; 80053; 85025; 87428; 93005; 99284; J1200; J1885; J2765; J2919; J7040

== ENCOUNTER → 2024-11-25 | Outpatient (REF) | payer MEDICARE ==
[~2024-11-25] MED LIST changes: +DIATRIZOATE MEGL/DIATRIZOA SOD 30 ML BTL PO ONE; +IOPAMIDOL 370 MG/ML 100 ML INFUS..BTL INJ ONE
[2024-11-25 08:59] LABS: CREATININE, SERUM 0.86 mg/dL (0.57-1.11)
== END ==
LOC: CT 07:36
PROVIDERS: ATTEND Internal Medicine
DX: R10.32 Left lower quadrant pain (principal); R11.2 Nausea with vomiting, unspecified; K57.92 Diverticulitis of intestine, part unspecified, without perforation or abscess without bleeding
CPT/HCPCS: 36415; 74177; 82565; 84520; Q9963; Q9967

== ENCOUNTER → 2025-01-25 | Day surgery (SDC) | payer MEDICARE ==
[2025-01-24 09:06] LABS: BASOPHILS % 0.5 % (0.0-1.0); EOSINOPHILS # (AUTO) 0.1 (0.0-0.4); EOSINOPHILS % 0.6 % (0.0-6.0); HEMATOCRIT 36.4 % (34.2-44.1); HEMOGLOBIN 12.2 g/dL (12.0-16.0); LYMPHOCYTES # (AUTO) 2.4 (1.0-3.2); LYMPHOCYTES % 31.6 % (18.0-39.1); MEAN CORPUSCULAR HEMOGLOBIN 33.2 pg (28-32); MEAN CORPUSCULAR HGB CONC 33.5 g/dL (31-35); MEAN CORPUSCULAR VOLUME 98.9 fL (81-99); MONOCYTES # (AUTO) 0.6 (0.2-0.8); MONOCYTES % 7.8 % (4.4-11.3); NEUTROPHILS # (AUTO) 4.6 (2.1-6.9); NEUTROPHILS % 59.2 % (38.7-80.0); PLATELET COUNT 277 x10e3/uL (140-360); RED BLOOD COUNT 3.68 x10e6/uL (3.6-5.1); RED CELL DISTRIBUTION WIDTH 13.2 % (11.7-14.4)
[~2025-01-25] MED LIST changes: -DIATRIZOATE MEGL/DIATRIZOA SOD 30 ML BTL PO ONE; +FENTANYL CITRATE/PF 100MCG/2 ML INJ ONE; +HYOSCYAMINE SULFATE 0.5 MG/ML INJ ONE; -IOPAMIDOL 370 MG/ML 100 ML INFUS..BTL INJ ONE; +KLOR-CON 1010 MEQ PO; +PHENYLEPHRINE HCL 1% 10 MG/ML VIAL ONE; +PROPOFOL IV EMULSION 10 MG/ML 20 ML VIAL ONE; +PROPOFOL IV EMULSION 50 ML IV ONE; +SODIUM CHLORIDE 0.9% 100 ML ONE
[2025-01-25] MEDS: LACTATED RINGER'S 1,000 ML ONE (06:12)
[2025-01-25 08:48] VITALS: TEMP 97.3
[2025-01-25 09:15] VITALS: BP 112/72; PULSE 80; RESP 16; O2SAT 96
[2025-01-25 09:54] LABS: CDIFF AG QUIK CHEK NEGATIVE (NEGATIVE); CDIFF TOX QUIK CHEK NEGATIVE (NEGATIVE); WBC,FECAL (FECAL LACTOFERRIN) NEGATIVE (NEGATIVE)
== END | disposition home or self-care (01) ==
LOC: OR 05:47
PROVIDERS: ATTEND Internal Medicine Gastroenterology
DX: K29.70 Gastritis, unspecified, without bleeding (principal); K62.1 Rectal polyp; K31.7 Polyp of stomach and duodenum; K52.831 Collagenous colitis; K20.90 Esophagitis, unspecified without bleeding; K63.3 Ulcer of intestine; K31.89 Other diseases of stomach and duodenum; K21.9 Gastro-esophageal reflux disease without esophagitis; K44.9 Diaphragmatic hernia without obstruction or gangrene; K57.30 Diverticulosis of large intestine without perforation or abscess without bleeding; K62.89 Other specified diseases of anus and rectum; K64.8 Other hemorrhoids; G47.33 Obstructive sleep apnea (adult) (pediatric); I11.0 Hypertensive heart disease with heart failure; I50.9 Heart failure, unspecified; E78.5 Hyperlipidemia, unspecified; F41.9 Anxiety disorder, unspecified; F32.A Depression, unspecified; Z01.810 Encounter for preprocedural cardiovascular examination; Z01.812 Encounter for preprocedural laboratory examination; Z79.899 Other long term (current) drug therapy; Z85.3 Personal history of malignant neoplasm of breast
CPT/HCPCS: 36415; 43239; 43251; 45380; 45385; 83630; 83993; 85025; 87045; 87177; 87324; 87328; 87449; 93005; J1980; J2371; J2470; J2704 ×2; J3010; J7050; J7121; 45378

== ENCOUNTER → 2025-07-05 | Outpatient (REF) | payer MEDICARE ==
[~2025-07-05] MED LIST changes: -FENTANYL CITRATE/PF 100MCG/2 ML INJ ONE; -HYOSCYAMINE SULFATE 0.5 MG/ML INJ ONE; -PHENYLEPHRINE HCL 1% 10 MG/ML VIAL ONE; -PROPOFOL IV EMULSION 10 MG/ML 20 ML VIAL ONE; -PROPOFOL IV EMULSION 50 ML IV ONE; -SODIUM CHLORIDE 0.9% 100 ML ONE
== END ==
LOC: RAD 12:38
PROVIDERS: ATTEND Internal Medicine
DX: Z01.818 Encounter for other preprocedural examination (principal); I50.22 Chronic systolic (congestive) heart failure
CPT/HCPCS: 71046